=== PATIENT | male | born 1995 | race Two or more races ===

== ENCOUNTER 2024-02-15 15:41 | Emergency (ER) | payer SELFPAY ==
[2024-02-15 15:48] VITALS: BP 124/81; PULSE 78; TEMP 37.1; O2SAT 100; BMI 25.8
--- NOTE | 2024-02-15 16:02 | ED.GENADUL1 ---
HPI HPI - General Adult General Chief complaint: Abdominal Pain Stated complaint: NAUSEA Time Seen by Provider: 02/15/24 15:51 Source: patient Mode of arrival: walk-in Limitations: no limitations History of Present Illness HPI narrative: 28-year-old male presents for 3-day history of nausea vomiting and diarrhea. He has not been around any ill people. No fever cough chest pain or shortness of breath. He has had intermittent abdominal pain and he does not have any now. Related Data Previous Rx's ?Medication ?Instructions ?Recorded ondansetron 4 mg disintegrating 4 mg PO Q6H PRN nausea and 02/15/24 tablet vomiting #20 tabs Allergies Allergy/AdvReac Type Severity Reaction Status Date / Time No Known Drug Allergies Allergy Verified 02/15/24 15:47 Opioid HPI Opioid Management Most Recent Opioid Data: Last Pain Scale 2 02/15/24 16:25 Review of Systems ROS Narrative A ten point review of systems is negative except as noted above. Exam Narrative Exam Narrative: Nurses note and vital signs reviewed and patient is not hypoxic. General: The patient appears well and in no apparent distress. Patient is resting comfortably on cart. Skin: Warm, dry, no pallor noted. There is no rash noted. Head: Normocephalic, atraumatic Eye: Normal conjunctiva, no drainage Ears, Nose, Mouth, and Throat: oral mucosa is moist. Nares patent. Cardiovascular: Regular Rate and Rhythm Respiratory: Patient is in no distress, no accessory muscle use, lungs are clear to auscultation, no wheezing, rales or rhonchi Back: non-tender GI: Soft and nontender Musculoskeletal: The patient has no evidence of calf tenderness, no pitting edema, symmetrical pulses noted bilaterally Neurological: A&O, normal speech Psychiatric: Cooperative Constitutional Vital Signs, click to edit/add: Last Vital Signs Temp 98.7 F 02/15/24 15:48 Pulse 78 02/15/24 15:48 Resp 18 02/15/24 15:48 BP 124/81 02/15/24 15:48 Pulse Ox 100 02/15/24 15:48 O2 Del Method Room Air 02/15/24 15:48 Course Vital Signs Vital signs: Vital Signs Temperature 98.7 F 02/15/24 15:48 Pulse Rate 78 02/15/24 15:48 Respiratory Rate 18 02/15/24 15:48 Blood Pressure 124/81 02/15/24 15:48 Pulse Oximetry 100 02/15/24 15:48 Oxygen Delivery Method Room Air 02/15/24 15:48 Temperature 98.7 F 02/15/24 15:48 Pulse Rate 78 02/15/24 15:48 Respiratory Rate 18 02/15/24 15:48 Blood Pressure 124/81 02/15/24 15:48 Pulse Oximetry 100 02/15/24 15:48 Oxygen Delivery Method Room Air 02/15/24 15:48 Medical Decision Making MDM Narrative Medical decision making narrative: Laboratory analysis is essentially negative. He is feeling improved after IV fluids and Zofran and was tolerating p.o. liquids. He is able to be discharged home. Treatment diagnosis and follow-up were discussed with the patient. Differential Diagnosis Differential Diagnosis: Gastroenteritis, food poisoning, dehydration Lab Data Lab results reviewed: Yes I reviewed the patient's lab results Labs: Lab Results 02/15/24 Range/Units 15:58 WBC 7.8 (4.0-11.0) 10^3/uL RBC 5.54 (4.70-6.10) 10^6/uL Hgb 18.1 H (14.0-18.0) g/dL Hct 50.4 (42.0-54.0) % MCV 91.0 (80.0-94.0) fL MCH 32.7 (25.9-34.0) pg MCHC 35.9 H (29.9-35.2) g/dL RDW 12.7 (11.0-15.0) % Plt Count 214 (150-450) 10^3/uL MPV 9.5 (9.5-13.5) fL Neut % (Auto) 66.7 (43.0-75.0) % Lymph % (Auto) 23.4 (20.5-60.0) % [place] % (Auto) 9.4 (1.7-12.0) % Eos % (Auto) 0.1 L (0.9-7.0) % Baso % (Auto) 0.1 L (0.2-2.0) % Neut # (Auto) 5.2 (1.4-6.5) 10^3/uL Lymph # (Auto) 1.8 (1.2-3.8) 10^3/uL [place] # (Auto) 0.7 (0.3-0.8) 10^3/uL Eos # (Auto) 0.0 (0.0-0.7) 10^3/uL Baso # (Auto) 0.0 (0.0-0.1) 10^3/uL Abs Immat Gran (auto) 0.02 (0.00-0.03) 10^3/uL Imm/Tot Granulo (auto) 0.3 (0.0-0.5) % Sodium 140 (136-145) mmol/L Potassium 3.9 (3.5-5.1) mmol/L Chloride 101 (98-107) mmol/L Carbon Dioxide 28.8 (21.0-32.0) mmol/L Anion Gap 14.1 BUN 11.0 (7.0-18.0) mg/dL Creatinine 1.02 (0.70-1.30) mg/dL Est GFR ( Amer) >60 (>=60) Est GFR (Non-Af Amer) >60 (>=60) BUN/Creatinine Ratio 10.8 Glucose 123 H (74-106) mg/dL Calcium 9.4 (8.5-10.1) mg/dL Urine Color Dk. yellow (YELLOW) Urine Clarity Clear (CLEAR) Urine pH 6.5 (5.0-9.0) Ur Specific [place] 1.020 (1.005-1.025) Urine Protein Trace (NEG/TRACE) mg/dL Urine Glucose (UA) Negative (NEGATIVE) mg/dL Urine Ketones Negative (NEGATIVE) mg/dL Urine Occult Blood Negative (NEGATIVE) Urine Nitrite Negative (NEGATIVE) Urine Bilirubin Small A (NEGATIVE) Urine Urobilinogen 4.0 A (0.2-1.0) EU/dL Ur Leukocyte Esterase Negative (NEGATIVE) Urine RBC 0-2 (0-2) #/HPF Urine WBC 0-2 A (NONE SEEN) #/HPF Ur Squamous Epith Cells Rare (NONE/RARE) #/LPF Urine Crystals None seen (None Seen) #/HPF Urine Bacteria Trace A (NONE SEEN) #/HPF Urine Casts None seen (NONE SEEN) #/LPF Urine Mucus None seen (NONE SEEN) Discharge Plan Discharge Stand Alone Forms: Portal Instructions Chief Complaint: Abdominal Pain Clinical Impression: Gastroenteritis Patient Disposition: Home, Self-Care Time of Disposition Decision: 18:03 Condition: Good Mode of Transportation: Private Vehicle Prescriptions / Home Meds: New ondansetron 4 mg tablet,disintegrating 4 mg PO Q6H PRN (Reason: nausea and vomiting) Qty: 20 0RF Print Language: Burundian Instructions: Gastroenteritis (ED) Referrals: Physician,Non-Staff, MD [Primary Care Provider] - 1 week
[2024-02-15 16:13] LABS: Bilirubin Urine SMALL (NEGATIVE); Blood Urine NEGATIVE (NEGATIVE); Clarity Urine CLEAR (CLEAR); Color Urine DK. YELLOW (YELLOW); Glucose Urine UA NEGATIVE (NEGATIVE); Ketones Urine NEGATIVE (NEGATIVE); Leukocyte Esterase Urine NEGATIVE (NEGATIVE); Nitrite Urine NEGATIVE (NEGATIVE); Protein Urine TRACE mg/dL (NEG/TRACE); pH Urine 6.5 (5.0-9.0)
[2024-02-15 16:14] LABS: Basophils Percent Auto 0.1 % (0.2-2.0); Eosinophils Percent Auto 0.1 % (0.9-7.0); Hematocrit 50.4 % (42.0-54.0); Hemoglobin 18.1 g/dL (14.0-18.0); Immature Granulocytes Abs Auto 0.02 10^3/uL (0.00-0.03); Immature Granulocytes Pct Auto 0.3 % (0.0-0.5); Lymphocytes Absolute Auto 1.8 10^3/uL (1.2-3.8); Lymphocytes Percent Auto 23.4 % (20.5-60.0); Mean Corpuscular HGB Conc 35.9 g/dL (29.9-35.2); Mean Corpuscular Hemoglobin 32.7 pg (25.9-34.0); Mean Platelet Volume 9.5 fL (9.5-13.5); Monocytes Absolute Auto 0.7 10^3/uL (0.3-0.8); Monocytes Percent Auto 9.4 % (1.7-12.0); Neutrophils Absolute Auto 5.2 10^3/uL (1.4-6.5); Neutrophils Percent Auto 66.7 % (43.0-75.0); Platelet Count 214 10^3/uL (150-450); Red Blood Count 5.54 10^6/uL (4.70-6.10); Red Cell Distribution Width 12.7 % (11.0-15.0); White Blood Count 7.8 10^3/uL (4.0-11.0)
[2024-02-15] MEDS: ONDANSETRON PF 4 MG/2 ML VIAL IV (16:19)
[2024-02-15] MEDS: 0.9 % SODIUM CHLORIDE 1,000 ML 1000 ML IV (16:19)
[2024-02-15 16:20] LABS: Anion Gap 14.1; BUN Creatinine Ratio 10.8; Calcium 9.4 mg/dL (8.5-10.1); Carbon Dioxide 28.8 mmol/L (21.0-32.0); Chloride 101 mmol/L (98-107); Estimated GFR (African America >60 (>=60); Estimated GFR (Non-African Ame >60 (>=60); Glucose 123 mg/dL (74-106); Sodium 140 mmol/L (136-145)
[2024-02-15 16:22] LABS: Bacteria Urine TRACE #/HPF (NONE SEEN); Crystals Seen? None Seen #/HPF (None Seen); Mucus Urine NONE SEEN (NONE SEEN); RBC Urine 0-2 #/HPF (0-2); Squamous Epithelial Cell Urine RARE #/LPF (NONE/RARE); WBC Urine 0-2 #/HPF (NONE SEEN)
[2024-02-15 16:23] LABS: Cast Seen? NONE SEEN #/LPF (NONE SEEN)
[2024-02-15 16:25] LABS: Potassium 3.9 mmol/L (3.5-5.1)
[2024-02-15 18:16] VITALS: BP 122/74; PULSE 71; O2SAT 100
== END 2024-02-15 18:16 | disposition home or self-care (01) ==
PROVIDERS: Emergency Provider Emergency Medicine
DX: K52.9 Noninfective gastroenteritis and colitis, unspecified (principal)
CPT/HCPCS: 36415; 80048; 81001; 85025; 96361; 96374; 99284; J2405

== ENCOUNTER 2024-12-20 17:36 | Emergency (ER) | payer SELFPAY ==
--- OUTSIDE RECORDS SUMMARY | 2024-12-18 17:21 | XMS_ITS | Encounter Summary ---
Author Organization [facility] tem Address [id number] [address] [place] [address] Care Team Providers Care Senior Cisco Network Engineer Name Role Phone No Pcp, No Pcp Primary Care Provider Unavailabl e Reason for Visit * Reason Comments Abdominal Pain Encounter Details Date Type Department Care Team ([facility] st Contact Info) Description 12/18/2024 5:21 PM EDT - 12/18/2024 5:24 PM EDT Emergency [facility] - Emergency [address] [place] [id number] Discharge Disposition: Left Without Treatment Social History Tobacco Use Types Packs/Day Years Used Date Smoking Tobacco: Every Day Vaping/E-cigarettes Smokeless Tobacco: Never Alcohol Use Standard Drinks/Week Comments Not Currently 0 (1 standard drink = 0.6 oz pur e alcohol) Childcare Answer Date Recorded Childcare Unknown 01/02/2019 Employment Answer Date Recorded Employment Unknown 01/02/2019 Hunger Screening Answer Date Recorded Within the past 12 months we worried whether our food would run out before we got money to buy more. Never True 05/09/2024 Within the past 12 months th e food we bought just didn't last and we didn't have money to get more. Never True 05/09/2024 Sex and Gender Information Value Date Recorded Sex Assigned at Not on file Legal Sex Male 6:47 AM EST Gender Identity Not on file Sexual Orientation Not on file documented as of this encounter Medications at Time of Discharge ondansetron ODT (ZOFRAN ODT) 4 mg disintegrating tablet Dissolve 1 tablet (4 mg total) on tongue every 8 (eight) hours as needed for nausea for up to 10 doses. 10 tablet 05/09/2024 documented as of this encounter Plan of Treatment Not on file documented as of this encounter Visit Diagnoses Not on filedocumented in this encounter Care Teams Senior Cisco Network Engineer Relationship Specialty Start Date End Date No Pcp, [place] [address] PCP - General Family Medicine 04/05/23 documented as of this encounter
[2024-12-20] VITALS (18 sets, daily range): BP systolic 94–130; BP diastolic 60–74; PULSE 73–86; TEMP 36.5–37.3; O2SAT 97–100; BMI 23.0
--- OUTSIDE RECORDS SUMMARY | 2024-12-20 17:40 | XMS_ITS | CCD ---
Author Organization [facility] Care Team Providers Care Form Tamper Operator Name Role Phone NO PCP, NO PCP Primary Care Unavailable MEGAN HICKMAN Attending Unavaila ble MEGAN HICKMAN Referring Unavaila ble NO PCP, NO PCP Primary Care Unavailable Problems Problem Classification Problem Date Documented Date Episodic/Chronic Abdominal pain (1 source) Abdominal pain Onset: 05-09-2024 Episodic Influenza (1 source) Influenza Onset: 05-09-2024 Noninfectious gastroenteritis (1 source) Noninfective gastroenteritis and colitis, unspecified; Translations: [Noninfective gastroenteritis and colitis, unspecified] Onset: 05-09-2024 Episodic Results Test Name Value Interpretation Reference Range Facil ity SARS/FLU A+B/RSV by NAAT/Mol ecularon 05-09-2024 SARS/FLU A+B/RSV by NAAT/Molecular FLU A PCR Negative (qualifier value) FLU B PCR Negative (qualifier value) RSV by PCR Negative (qualifier value) SARS CoV 2 Not detected (qualifier value) NOTE The Xpert Xpress SARS-CoV-2/Flu/RSV Plus test is a rapid, multiplexed real-time RT-PCR test intended for the simultaneous qualitative detection and differentiation of SARS-CoV-2, influenza A, influenza B and respiratory syncytial virus (RSV) viral RNA from individuals suspected of respiratory viral infection consistent with COVID-19 by their healthcare provider. This test has not been validated in asymptomatic patients. The Xpert Xpress SARS-CoV-2 test is intended for use by qualified and trained operators who are performing tests using either [employer] or [employer] systems and is limited to laboratories that meet the CLIA requirements to perform high and moderate complexity tests. The Xpert Xpress SARS-CoV-2/Flu/RSV Plus is only for use under the Food and Drug Administration's Emergency Use Authorization. Results are for the simultaneous detection and differentiation of SARS-CoV-2, influenza A, influenza B and RSV nucleic acids in clinical specimens. SARS-CoV-2, influenza A, influenza B and RSV RNA identified by this test are generally detectable in upper respiratory samples during the acute phase of infection. Positive results are indicative of the presence of the identified virus, but do not rule out bacterial infection or co-infection with other pathogens not detected by this test. Clinical correlation with patient history and other diagnostic information is necessary to determine patient infection status. The agent detected may not be the definite cause of disease. Negative results do not preclude SARS-CoV-2, influenza A, influenza B and RSV infection and should not be used as the sole basis for treatment or other patient management decisions. Negative results must be combined with clinical observations, patient history and epidemiological information. An Invalid result may occur with specimen-associated inhibition unable to be resolved with specimen repeat. Fact Sheet for Healthcare Providers: https://www.fda.gov/med ia/403282/download Fact Sheet for Patients: https://www.fda.gov/med ia/417998/download Normal [facility] Comment on above: Performed By: #### C OVFLR #### [facility] ([id number]) [address] [place] [address]66 URN MACROSCOPIC NURon 2023 BILIRUBIN REBECCA Small Abnormal NEG [facility] Comment on above: Performed By: #### N UM #### [facility] ([id number]) [address] [place] [address] 06810 BLOOD/HGB REBECCA Negative Normal NEG [facility] Comment on above: Performed By: #### N UM #### [facility] ([id number]) [address] [place] [address] 41612 GLUCOSE REBECCA 100 mg/dL Abnormal NEG [facility] Comment on above: Performed By: #### N UM #### [facility] ([id number]) [address] [place] [address] 25528 KETONES REBECCA 80 mg/dL Abnormal NEG [facility] Comment on above: Performed By: #### N UM #### [facility] ([id number]) [address] [place] [address] 91849 LEUKOCYTE ESTERASE REBECCA Negative Normal NEG [facility] Comment on above: Performed By: #### N UM #### [facility] ([id number]) [address] [place] [address] 40581 NITRITE REBECCA Negative Normal NEG [facility] Comment on above: Performed By: #### N UM #### [facility] ([id number]) [address] [place] [address] 77214 PH REBECCA 7.0 Normal 5.0-8.5 [facility] Comment on above: Performed By: #### N UM #### [facility] ([id number]) [address] [place] [address] 62653 PROTEIN REBECCA 100 mg/dL Abnormal NEG [facility] Comment on above: Performed By: #### N UM #### [facility] ([id number]) [address] [place] [address] 52768 SPECIFIC GRAVITY REBECCA 1.025 Normal 1.003-1.035 [facility] Comment on above: Performed By: #### N UM #### [facility] ([id number]) [address] [place] [address] 63995 UROBILINOGEN REBECCA 1.0 eu/dL Normal <1.1 [facility] Comment on above: Performed By: #### N UM #### [facility] ([id number]) [address] [place] [address] 89075 XR CHEST 2 VWSon 05-09-2024 XR CHEST 2 VWS XR CHEST 2 VWS XR CHEST 2 VWS HISTORY: Shortness of breath COMPARISON: None FINDINGS: No pleural effusion, pneumothorax, or focal consolidative process. Cardiomediastinal silhouette appears nonenlarged. IMPRESSION: * No evidence for acute pulmonary process. Approved by Resident: Mohsen Castro MD on 05/09/2024 9:01 PM IErnie MD have personally reviewed the image(s) and agree with and/or edited the report Finalized by Ernie Vidal MD on 05/09/2024 9:05 PM Normal [facility] Encounters Encounter Date Encounter Type Care Provider Facility Start: 05-09-2024 End: 05-09-2024 Emergency department patient visit NO PCP NO PCP [facility] Summary Purpose Family History No Family History Records Found Advance Directives No Advanced Directives Records Found Additional Source Comments (unrecognized sect ion and content) No Status Records Found INFORMATION SOURCE (unrecogn ized section and content) DATE CREATED AUTHOR 05/12/2024 [facility] FOR RECORDS PERTAINING TO PATIENTS WHO ARE OR HAVE BEEN ENROLLED IN A CHEMICAL DEPENDENCY/SUBSTANCEABUSE PROGRAM, SOME INFORMATION MAY BE OMITTED. This clinical summary was aggregated from multiple sources. Caution should be exercised in using it in the provision of clinical care. This summary normalizes information from multiple sources, and as a consequence, information in this document may materially change the coding, format and clinical context of patient data. In addition, data may be omitted in some cases. CLINICAL DECISIONS SHOULD BE BASED ON THE PRIMARY CLINICAL RECORDS. [employer] provides no warranty or guarantee of the accuracy or completeness of information in this document.
--- NOTE | 2024-12-20 17:49 | CT_ITS ---
The [address] [address] Patient Name: ANTONIETA AKHTAR MRN: [id number] date: 1995 Sex: M Assigned Patient Location: ER Current Patient Location: ER Accession/Order Number: [id number] Exam Date: 12/20/2024 19:01 Report Date: 12/20/2024 19:05 At the request of: ARMANI CANO Procedure: CT abdomen pelvis w con CT Abdomen and Pelvis withcontrast TECHNIQUE: Axial imaging with 2-D reconstruction.100 cc of Omnipaque 300. The CT exam was performed using one or more the following dose reduction techniques: Automated exposure control, adjustment of the MA and/or Kv according to patient size, or use of the iterative reconstruction technique. COMPARISON: None History: Abdominal pain. Nausea and vomiting. LIMITATIONS: None LOWER THORAX Unremarkable LIVER: Unremarkable GALLBLADDER: No gallbladder abnormality identified. BILE DUCTS: 1 cm prominence of pancreatic duct. No obstructing calcified stone. SPLEEN: Unremarkable PANCREAS: Peripancreatic stranding and unorganized fluid consistent with acute pancreatitis. Homogeneous enhancement of pancreas. No necrosis. No ductal dilatation. ADRENAL GLANDS: Unremarkable KIDNEYS:Unremarkable AORTA: No abdominal aortic aneurysm identified. RETROPERITONEUM: No significant retroperitoneal abnormalities identified. MESENTERY:Unremarkable SMALL BOWEL: The small bowel loops are nondistended. APPENDIX: The appendix is normal. COLON: Unremarkable URINARY BLADDER: Urinary bladder wall thickening. Underdistention versus cystitis. REPRODUCTIVE SYSTEM: Reproductive structures are unremarkable. PNEUMOPERITONEUM: None PERITONEAL FLUID:Small amount of low-density pelvic ascites BONY STRUCTURES: Unremarkable ABDOMINAL WALL: Unremarkable CT/CT abdomen pelvis w con IMPRESSION: Uncomplicated acute pancreatitis. Urinary bladder wall thickening. Underdistention versus cystitis. Trace pelvic ascites. Impression dictated by: Satnam Tan M.D. 12/20/2024 7:05 PM Dictation Location: [facility] Electronically authenticated by: [id number] Y Date: 12/20/2024 19:05
--- NOTE | 2024-12-20 17:50 | ED.ABDPAIN1 ---
Documented by User: JEROME Wolfe 12/20/24 20:31 HPI - Abdominal Pain General Chief Complaint: Abdominal Pain Stated Complaint: Abdominal Pain Time Seen by Provider: 12/20/24 17:41 Source: patient Mode of arrival: walk-in Limitations: no limitations History of Present Illness HPI narrative: Patient is a 29-year-old male who presents to the emergency department for 3-day history of vomiting, diarrhea and abdominal pain. He denies any previous abdominal surgeries. He denies blood in his stool. He has not taken any medications prior to arrival. No fevers or upper respiratory symptoms. He reports diffuse low abdominal pain. He apparently has had similar symptoms in the past regularly, he states he has been having similar recurrence of the same symptoms every few months. He was seen in this emergency department 1 year ago for the same. He states when this happens he typically roughs it out or goes to the emergency department. He has never had imaging of his abdomen. He states he tried to go to the [facility] emergency department yesterday but was in too much pain. Related Data Previous Rx's ?Medication ?Instructions ?Recorded famotidine 20 mg tablet (Pepcid) 20 mg PO BID #10 tabs 12/20/24 ondansetron 4 mg disintegrating 4 mg PO Q6H PRN nausea and 12/20/24 tablet vomiting #12 tabs tramadol 50 mg tablet 50 mg PO Q6H PRN pain 4 days #15 12/20/24 tabs Allergies Allergy/AdvReac Type Severity Reaction Status Date / Time No Known Drug Allergies Allergy Verified 12/20/24 17:39 Review of Systems ROS Constitutional Denies: fever or chills Ears, nose, mouth, and throat Denies: throat pain or nasal congestion Cardiovascular Denies: chest pain Respiratory Denies: shortness of breath Gastrointestinal Reports: abdominal pain, nausea, vomiting and diarrhea Integumentary/Breast Denies: rash Neurological Denies: numbness in extremities or weakness in extremities Hematologic/Lymphatic Denies: easy bruising or easy bleeding PFSH PFSH Social History Little interest or pleasure in doing things: not at all Feeling down, depressed, or hopeless: not at all Exam Narrative Exam Narrative: Gen.: Awake, alert, in no distress Head: Normocephalic, atraumatic ENT: Moist mucous membranes Respiratory: No respiratory distress, lungs clear bilaterally Cardio: Regular rate and rhythm Gastrointestinal: Abdomen is soft, nondistended and diffusely tender to palpation, no guarding or rebound Extremities: Moves extremities equally Psych: Normal mood and affect Neuro: No focal neuro deficit Skin: Warm, dry, intact Constitutional Vital Signs, click to edit/add: Last Vital Signs Temp 97.7 F 12/20/24 20:36 Pulse 73 12/20/24 20:36 Resp 16 12/20/24 20:36 BP 115/67 12/20/24 20:36 Pulse Ox 98 12/20/24 20:36 O2 Del Method Room Air 12/20/24 20:36 Course Vital Signs Vital signs: Vital Signs Temperature 99.1 F 12/20/24 17:39 Pulse Rate 86 12/20/24 17:39 Respiratory Rate 20 12/20/24 17:39 Blood Pressure 130/74 12/20/24 17:39 Pulse Oximetry 99 12/20/24 17:39 Oxygen Delivery Method Room Air 12/20/24 17:39 Temperature 97.7 F 12/20/24 20:36 Pulse Rate 73 12/20/24 20:36 Respiratory Rate 16 12/20/24 20:36 Blood Pressure 115/67 12/20/24 20:36 Pulse Oximetry 98 12/20/24 20:36 Oxygen Delivery Method Room Air 12/20/24 20:36 MDM - Abdominal Pain MDM Narrative Medical decision making narrative: Laboratory studies reviewed and noted, patient noted to have mild leukocytosis, elevated lipase and elevated bilirubin with transaminitis. He was treated with IV fluids, pain medication and Pepcid. He has continued moderate abdominal pain though improved and more relaxed on reevaluation. CT of the abdomen and pelvis shows acute uncomplicated pancreatitis. No evidence of gallstone or biliary dilation. Admitting physician contacted and the patient was admitted for pancreatitis, however prior to admission he is stating that he does not want to stay in the hospital. I suspect this patient will likely fail outpatient therapy, however he can return to the emergency department at any time if his symptoms change or worsen. His vital signs are stable at discharge. He is given Zofran, Pepcid, tramadol for home. We will avoid pain medication with Tylenol as he has transaminitis. He understands the risks of and disability by leaving the hospital AGAINST MEDICAL ADVICE. Patient was noted to have an elevated amylase as well as an elevated direct bilirubin. He was made aware of possible underlying GI pathology that was not evaluated on the CT scan, he was reevaluated by attending physician. SUPERVISED APC VISIT, PHYSICIAN ATTESTATION: Based on the medical record the care appears appropriate. ? Medical Records Attestation: I reviewed the patient's medical records. Lab Data Attestation: I reviewed the patient's lab results. Labs: Lab Results 12/20/24 Range/Units 17:49 WBC 13.4 H (4.0-11.0) 10^3/uL RBC 5.17 (4.70-6.10) 10^6/uL Hgb 16.6 (14.0-18.0) g/dL Hct 45.2 (42.0-54.0) % MCV 87.4 (80.0-94.0) fL MCH 32.1 (25.9-34.0) pg MCHC 36.7 H (29.9-35.2) g/dL RDW 12.2 (11.0-15.0) % Plt Count 167 (150-450) 10^3/uL MPV 9.4 L (9.5-13.5) fL Seg Neuts % (Manual) 86.0 H (43.0-75.0) Band Neutrophils % 3.0 (0-5) % Lymphocytes % (Manual) 4.0 L (20.5-60.0) % Monocytes % (Manual) 7.0 (1.7-12.0) % Eosinophils % (Manual) 0.0 L (0.9-7.0) % Basophils % (Manual) 0.0 L (0.2-2.0) % Neutrophils # (Manual) 11.52 H (1.4-6.5) 10^3/uL Band Neutrophils # 0.4 H (0.0-0.3) 10^3/uL Lymphocytes # (Manual) 0.53 L (1.20-3.80) 10^3/uL Monocytes # (Manual) 0.93 H (0.30-0.80) 10^3/uL Eosinophils # (Manual) 0.00 (0.00-0.70) 10^3/uL Basophils # (Manual) 0.00 (0.00-0.10) 10^3/uL Sodium 134 L (136-145) mmol/L Potassium 3.8 (3.5-5.1) mmol/L Chloride 96 L (98-107) mmol/L Carbon Dioxide 28.1 (21.0-32.0) mmol/L Anion Gap 13.7 BUN 12.0 (7.0-18.0) mg/dL Creatinine 0.74 (0.70-1.30) mg/dL Est GFR ( Amer) >60 (>=60 mL/min/1.73m^2) Est GFR (Non-Af Amer) >60 (>=60 mL/min/1.73m^2) BUN/Creatinine Ratio 16.2 Glucose 97 (74-106) mg/dL Calcium 9.8 (8.5-10.1) mg/dL Total Bilirubin 3.5 H (0.2-1.0) mg/dL Direct Bilirubin 0.9 H* (0.0-0.2) mg/dL AST 180 H (15-37) U/L ALT 390 H (16-63) U/L Alkaline Phosphatase 191 H (46-116) U/L Total Protein 8.0 (6.4-8.2) g/dL Albumin 3.8 (3.4-5.0) g/dL Globulin 4.2 g/dL Albumin/Globulin Ratio 0.9 Amylase 553 H* (25-115) U/L Lipase 475.0 H (16.0-77.0) U/L Imaging Data CT scan - abdomen: Attestation: I have reviewed the pertinent imaging results. Radiologist's impression: ITS Impressions Abdomen/Pelvis CT 12/20/24 17:49 IMPRESSION: Uncomplicated acute pancreatitis. Urinary bladder wall thickening. Underdistention versus cystitis. Trace pelvic ascites. Impression dictated by: Satnam Tan M.D. 12/20/2024 7:05 PM Dictation Location: [facility] Electronically authenticated by: [id number] Y Date: 12/20/2024 19:05 Discharge Plan Discharge Stand Alone Forms: Portal Instructions Chief Complaint: Abdominal Pain Clinical Impression: Acute pancreatitis, Transaminitis, Abdominal pain Patient Disposition: Left Against Medical Advice Time of Disposition Decision: 19:20 Condition: Good Prescriptions / Home Meds: New tramadol 50 mg tablet 50 mg PO Q6H PRN (Reason: pain) 4 Days Qty: 15 0RF Rx Instructions: DX: R10.9 famotidine [Pepcid] 20 mg tablet 20 mg PO BID Qty: 10 0RF ondansetron 4 mg tablet,disintegrating 4 mg PO Q6H PRN (Reason: nausea and vomiting) Qty: 12 0RF Print Language: Dominican Instructions: Pancreatitis (ED), Acute Abdominal Pain (ED) Referrals: Physician,Non-Staff, MD [Primary Care Provider] - 1 week Discharge Date/Time: 12/20/24 20:39 Documented by User: Jamil Paz 12/20/24 20:59 HPI - Abdominal Pain General Chief Complaint: Abdominal Pain Stated Complaint: Abdominal Pain Time Seen by Provider: 12/20/24 17:41 Related Data Previous Rx's ?Medication ?Instructions ?Recorded famotidine 20 mg tablet (Pepcid) 20 mg PO BID #10 tabs 12/20/24 ondansetron 4 mg disintegrating 4 mg PO Q6H PRN nausea and 12/20/24 tablet vomiting #12 tabs tramadol 50 mg tablet 50 mg PO Q6H PRN pain 4 days #15 12/20/24 tabs Allergies Allergy/AdvReac Type Severity Reaction Status Date / Time No Known Drug Allergies Allergy Verified 12/20/24 17:39 PFSH PFS Social History Little interest or pleasure in doing things: not at all Feeling down, depressed, or hopeless: not at all Exam Constitutional Vital Signs, click to edit/add: Last Vital Signs Temp 97.7 F 12/20/24 20:36 Pulse 73 12/20/24 20:36 Resp 16 12/20/24 20:36 BP 115/67 12/20/24 20:36 Pulse Ox 98 12/20/24 20:36 O2 Del Method Room Air 12/20/24 20:36 Course Vital Signs Vital signs: Vital Signs Temperature 99.1 F 12/20/24 17:39 Pulse Rate 86 12/20/24 17:39 Respiratory Rate 20 12/20/24 17:39 Blood Pressure 130/74 12/20/24 17:39 Pulse Oximetry 99 12/20/24 17:39 Oxygen Delivery Method Room Air 12/20/24 17:39 Temperature 97.7 F 12/20/24 20:36 Pulse Rate 73 12/20/24 20:36 Respiratory Rate 16 12/20/24 20:36 Blood Pressure 115/67 12/20/24 20:36 Pulse Oximetry 98 12/20/24 20:36 Oxygen Delivery Method Room Air 12/20/24 20:36 MDM - Abdominal Pain MDM Narrative Medical decision making narrative: Laboratory studies reviewed and noted, patient noted to have mild leukocytosis, elevated lipase and elevated bilirubin with transaminitis. He was treated with IV fluids, pain medication and Pepcid. He has continued moderate abdominal pain though improved and more relaxed on reevaluation. CT of the abdomen and pelvis shows acute uncomplicated pancreatitis. No evidence of gallstone or biliary dilation. Admitting physician contacted and the patient was admitted for pancreatitis, however prior to admission he is stating that he does not want to stay in the hospital. I suspect this patient will likely fail outpatient therapy, however he can return to the emergency department at any time if his symptoms change or worsen. His vital signs are stable at discharge. He is given Zofran, Pepcid, tramadol for home. We will avoid pain medication with Tylenol as he has transaminitis. He understands the risks of and disability by leaving the hospital AGAINST MEDICAL ADVICE. Patient was noted to have an elevated amylase as well as an elevated direct bilirubin @ 0.9. He was made aware of possible underlying GI pathology that was not evaluated on the CT scan, he was reevaluated by attending physician. SUPERVISED APC VISIT, PHYSICIAN ATTESTATION: Based on the medical record the care appears appropriate. Attending physician note -I saw and examined the patient after discussing the patient's case with the physician plumber's assistant. Exam did not reveal any acute surgical abdominal findings and no cardiopulmonary abnormalities. Neurologically he was appropriate. The patient was found to have elevated LFTs, elevated total bilirubin, elevated direct bilirubin and elevated lipase. Imaging did not reveal any evidence of acute cholecystitis or biliary stones but we cannot rule out ductal stone. The patient was made aware of the potential for him to worsen but he still wanted to go home rather than be admitted. He was instructed maintain a clear liquid diet and to take the medicines as prescribed. We discussed reasons to return to the ED including fever, chills, worsening abdominal pain, intractable vomiting -he expressed verbal understanding of this. - Amrita, DO ? Lab Data Labs: Lab Results 12/20/24 Range/Units 17:49 WBC 13.4 H (4.0-11.0) 10^3/uL RBC 5.17 (4.70-6.10) 10^6/uL Hgb 16.6 (14.0-18.0) g/dL Hct 45.2 (42.0-54.0) % MCV 87.4 (80.0-94.0) fL MCH 32.1 (25.9-34.0) pg MCHC 36.7 H (29.9-35.2) g/dL RDW 12.2 (11.0-15.0) % Plt Count 167 (150-450) 10^3/uL MPV 9.4 L (9.5-13.5) fL Seg Neuts % (Manual) 86.0 H (43.0-75.0) Band Neutrophils % 3.0 (0-5) % Lymphocytes % (Manual) 4.0 L (20.5-60.0) % Monocytes % (Manual) 7.0 (1.7-12.0) % Eosinophils % (Manual) 0.0 L (0.9-7.0) % Basophils % (Manual) 0.0 L (0.2-2.0) % Neutrophils # (Manual) 11.52 H (1.4-6.5) 10^3/uL Band Neutrophils # 0.4 H (0.0-0.3) 10^3/uL Lymphocytes # (Manual) 0.53 L (1.20-3.80) 10^3/uL Monocytes # (Manual) 0.93 H (0.30-0.80) 10^3/uL Eosinophils # (Manual) 0.00 (0.00-0.70) 10^3/uL Basophils # (Manual) 0.00 (0.00-0.10) 10^3/uL Sodium 134 L (136-145) mmol/L Potassium 3.8 (3.5-5.1) mmol/L Chloride 96 L (98-107) mmol/L Carbon Dioxide 28.1 (21.0-32.0) mmol/L Anion Gap 13.7 BUN 12.0 (7.0-18.0) mg/dL Creatinine 0.74 (0.70-1.30) mg/dL Est GFR ( Amer) >60 (>=60 mL/min/1.73m^2) Est GFR (Non-Af Amer) >60 (>=60 mL/min/1.73m^2) BUN/Creatinine Ratio 16.2 Glucose 97 (74-106) mg/dL Calcium 9.8 (8.5-10.1) mg/dL Total Bilirubin 3.5 H (0.2-1.0) mg/dL Direct Bilirubin 0.9 H* (0.0-0.2) mg/dL AST 180 H (15-37) U/L ALT 390 H (16-63) U/L Alkaline Phosphatase 191 H (46-116) U/L Total Protein 8.0 (6.4-8.2) g/dL Albumin 3.8 (3.4-5.0) g/dL Globulin 4.2 g/dL Albumin/Globulin Ratio 0.9 Amylase 553 H* (25-115) U/L Lipase 475.0 H (16.0-77.0) U/L Imaging Data CT scan - abdomen: Radiologist's impression: ITS Impressions Abdomen/Pelvis CT 12/20/24 17:49 IMPRESSION: Uncomplicated acute pancreatitis. Urinary bladder wall thickening. Underdistention versus cystitis. Trace pelvic ascites. Impression dictated by: Satnam Tan M.D. 12/20/2024 7:05 PM Dictation [facility] Electronically authenticated by: [id number] Y Date: 12/20/2024 19:05 Discharge Plan Discharge Stand Alone Forms: Portal Instructions Chief Complaint: Abdominal Pain Clinical Impression: Acute pancreatitis, Transaminitis, Abdominal pain Patient Disposition: Left Against Medical Advice Time of Disposition Decision: 19:20 Condition: Good Prescriptions / Home Meds: New tramadol 50 mg tablet 50 mg PO Q6H PRN (Reason: pain) 4 Days Qty: 15 0RF Rx Instructions: DX: R10.9 famotidine [Pepcid] 20 mg tablet 20 mg PO BID Qty: 10 0RF ondansetron 4 mg tablet,disintegrating 4 mg PO Q6H PRN (Reason: nausea and vomiting) Qty: 12 0RF Print Language: Dominican Instructions: Pancreatitis (ED), Acute Abdominal Pain (ED) Referrals: Physician,Non-Staff, MD [Primary Care Provider] - 1 week Discharge Date/Time: 12/20/24 20:39
[2024-12-20] MEDS: MORPHINE SULFATE 4 MG/ML VIAL IV (17:59)
[2024-12-20] MEDS: ONDANSETRON PF 4 MG/2 ML VIAL IV (17:59)
[2024-12-20] MEDS: FAMOTIDINE/PF 20 MG/2 ML VIAL IV (17:59)
[2024-12-20] MEDS: 0.9 % SODIUM CHLORIDE 1,000 ML 999 ML IV (17:59)
[2024-12-20 18:07] LABS: Hematocrit 45.2 % (42.0-54.0); Hemoglobin 16.6 g/dL (14.0-18.0); Mean Corpuscular HGB Conc 36.7 g/dL (29.9-35.2); Mean Corpuscular Hemoglobin 32.1 pg (25.9-34.0); Mean Corpuscular Volume 87.4 fL (80.0-94.0); Mean Platelet Volume 9.4 fL (9.5-13.5); Platelet Count 167 10^3/uL (150-450); Red Blood Count 5.17 10^6/uL (4.70-6.10); Red Cell Distribution Width 12.2 % (11.0-15.0); White Blood Count 13.4 10^3/uL (4.0-11.0)
[2024-12-20 18:21] LABS: Band Neutrophils Absolute 0.4 10^3/uL (0.0-0.3); Lymphocytes Absolute Manual 0.53 10^3/uL (1.20-3.80); Monocytes Absolute Manual 0.93 10^3/uL (0.30-0.80); Segmented Neut Absolute Manual 11.52 10^3/uL (1.4-6.5)
[2024-12-20 18:24] LABS: Alanine Aminotransferase 390 U/L (16-63); Albumin Globulin Ratio 0.9; Albumin Level 3.8 g/dL (3.4-5.0); Alkaline Phosphatase 191 U/L (46-116); Anion Gap 13.7; Aspartate Amino Transferase 180 U/L (15-37); BUN Creatinine Ratio 16.2; Bilirubin Total 3.5 mg/dL (0.2-1.0); Calcium 9.8 mg/dL (8.5-10.1); Carbon Dioxide 28.1 mmol/L (21.0-32.0); Chloride 96 mmol/L (98-107); Estimated GFR (African America >60 (>=60 mL/min/1.73m^2); Estimated GFR (Non-African Ame >60 (>=60 mL/min/1.73m^2); Globulin 4.2 g/dL; Glucose 97 mg/dL (74-106); Potassium 3.8 mmol/L (3.5-5.1); Sodium 134 mmol/L (136-145)
[2024-12-20] MEDS: 0.9 % SODIUM CHLORIDE 1,000 ML 250 ML IV (19:34)
[2024-12-20 19:39] LABS: Amylase 553 U/L (25-115)
[2024-12-20 20:17] LABS: Bilirubin Direct 0.9 mg/dL (0.0-0.2)
--- NOTE | 2024-12-20 20:17 | PC.NURSE ---
Direct bili is 0.9. MD and PA aware.
--- NOTE | 2024-12-20 20:19 | PC.NURSE ---
Pt states he does not wish to stay at [facility]. Tape Coater re-explained the rationale for admittance. MD in to speak with him. Pt continues to refuse admission after risks and benefits explained per MD. AMA form signed. Pt asked if he can stay until IV fluid completed. 500 ml left in bag. Fluids continued.
== END 2024-12-20 20:39 | disposition left against medical advice (07) ==
PROVIDERS: Physician Assistant; Emergency Provider Emergency Medicine
DX: K85.90 Acute pancreatitis without necrosis or infection, unspecified (principal); R19.7 Diarrhea, unspecified; R10.84 Generalized abdominal pain; R11.2 Nausea with vomiting, unspecified; R74.01 Elevation of levels of liver transaminase levels; Z53.29 Procedure and treatment not carried out because of patient's decision for other reasons
CPT/HCPCS: 36415; 74177; 80053; 80307; 81001; 82150; 82248; 83690; 85007; 85027; 96361; 96374; 96375; 99285; J2270; J2405; J3490; Q9967